=== PATIENT | female | born 1980 | race Asian ===

== ENCOUNTER 2019-07-06 06:14 | Outpatient (CLI) | payer OTHER ==
[2019-07-06 11:02] LABS: BHCG - Serum Negative (NEGATIVE); Pregs Control Background? CLEAR/WHITE (CLR/WHITE); Pregs Control Bar Appear? YES (CONTROL BAR)
[2019-07-06 18:13] LABS: SARS-CoV-2 MS2 Positive; SARS-CoV-2 N Gene Negative; SARS-CoV-2 S Gene Negative; SARS-CoV-2 orf1ab Negative
== END 2019-07-06 06:15 | disposition home or self-care (01) ==
LOC: LABBT 06:14
PROVIDERS: ATTEND Neurological Surgery
DX: Z01.812 Encounter for preprocedural laboratory examination (principal); Z11.59 Encounter for screening for other viral diseases; M51.16 Intervertebral disc disorders with radiculopathy, lumbar region
CPT/HCPCS: 84703; 87635; U0003

== ENCOUNTER 2019-07-08 06:14 | Day surgery (SDC) | payer OTHER ==
[2019-07-06 09:48] VITALS: BMI 22.6
--- NOTE | 2019-07-07 12:43 | HP ---
HISTORY OF PRESENT ILLNESS: Ms. Richards is a very pleasant 38-year-old woman, here today to discuss seven years worth of increasing lower back pain now to include a right lower extremity L5 pattern of pain with difficulty walking even shorter distances. She reports persistent numbness to the heel of the right foot and to the posterolateral right calf. She has similar symptoms on the left, but much less severe. She has treated this with rest and acupuncture, which she feels has helped, but her symptoms persist. Pain worsens when standing or walking, but much better when lying down. MRI on [facility] from [place] reveals a large central disk protrusion at both L3 and at L4 that likely contributing someway to her symptoms. PHYSICAL EXAMINATION: She is alert and oriented x3. Gait is slowed and antalgic. Lower extremity motor exam is normal. She does have a positive right straight leg raise. PAST MEDICAL HISTORY: Significant for no major medical problems. She has no prior surgeries. She takes estradiol daily. ALLERGIES: NO KNOWN DRUG ALLERGIES. ASSESSMENT: Lumbar disk herniation with radiculopathy. PLAN: Dr. Levy met with the patient, reviewed imaging, and advocated for an L3 and L4 diskectomy. He explained to the patient the risks, benefits, and alternatives to the procedure. The patient expressed understanding and elected to move forward with surgery as discussed. I do believe the patient is mentally competent and capable of making medical decisions for herself. We will move forward with surgery as planned. Job ID: [id number]
[2019-07-08] MEDS ORDERED: Fentanyl 100 MCG/2 ML VIAL ONE ×3 (06:34→10:15)
[2019-07-08] MEDS ORDERED: Thrombin 5000 UNITS/5 ML VIAL ONE (06:53)
[2019-07-08] MEDS ORDERED: Bupivacaine PF 0.5% 30 ML VIAL ONE (06:53)
[2019-07-08] MEDS ORDERED: Lidocaine 1% w/Epinephrine 1:100K 20 ML VIAL ONE (06:53)
[2019-07-08] MEDS ORDERED: Midazolam HCl 2 mg/2 ml Vial ONE (07:27)
[2019-07-08] MEDS ORDERED: Sodium Chloride 0.9% 30 ML ONE (09:14)
--- NOTE | 2019-07-08 09:20 | OP ---
DATE OF PROCEDURE: 07/08/2019 RAW MATERIAL PLANNER: Narayan Baez PA-C INDICATION: Pain. DIAGNOSIS: Lumbar radiculopathy and herniated disk at L3 and L4. PROCEDURE PERFORMED: L3-L4 decompression with diskectomy. ANESTHESIA: General. DESCRIPTION OF PROCEDURE: The patient was brought into the operating room and placed under general anesthesia. She was flipped from the supine to prone position on the operating room table. A linear incision was planned at the L4 region. After prepping and draping and after an operative pause, the incision was created. The soft tissues were swept away from midline. Self-retaining retractors were placed into the wound for optimal exposure. After confirming the appropriate level with C-arm fluoroscopy, the entire lamina of L4 was removed as well as a small inferior aspect of L3 and superior aspect of L5. After performing the laminectomy and decompressing the lateral recesses, we looked in the lateral recess at the L4-L5 segment on the left, where a right angled nerve root retractor mobilized the thecal sac to the contralateral side and an annulotomy was performed on the disk at the L4 segment. Firm disk material was removed. The descending L5 nerve roots were decompressed bilaterally. We then redirected our attention at the L3-L4 segment, where a large varicosity was identified in the epidural space. That was removed with bipolar cautery. The lateral recesses were further decompressed such that the descending L4 nerve roots were decompressed. The L3-L4 disk was inspected and found not to be a significant contributing factor to compression and therefore a diskectomy at that segment was not removed, just a decompression alone. After completing the decompressions, the wound was irrigated. Hemostasis was maintained throughout. The wound was then closed in anatomic layers and a pressure dressing was applied. There were no known procedural complications. Job ID: [id number]
[2019-07-08] MEDS ORDERED: Meperidine HCl/PF 25 MG/ML VIAL ONE (09:30)
[2019-07-08] MEDS ORDERED: Ondansetron PF 4 MG/2 ML Vial ONE (11:42)
[2019-07-08] MEDS ORDERED: Lidocaine 1% PF 5 ML VIAL ONE (11:42)
[2019-07-08] MEDS ORDERED: PROPOFOL 200 MG/20 ML VIAL ONE (11:42)
[2019-07-08] MEDS ORDERED: Rocuronium Bromide 10 MG/ML (10ML VIAL) ONE (11:42)
[2019-07-08] MEDS ORDERED: Glycopyrrolate 0.2 MG/ML 5 ML SYRINGE ONE (11:42)
[2019-07-08] MEDS ORDERED: Ketorolac Tromethamine 30 MG/ML VIAL ONE (11:42)
[2019-07-08] MEDS ORDERED: Dexamethasone 20 MG/5 ML VIAL ONE (11:42)
[2019-07-08] MEDS ORDERED: CEFAZOLIN 1 GM VIAL ONE (12:26)
== END 2019-07-08 13:20 | disposition home or self-care (01) ==
LOC: SDC 06:14
PROVIDERS: ATTEND Neurological Surgery
PROC: 0ST20ZZ Resection of Lumbar Vertebral Disc, Open Approach (ICD-10-PCS; principal; 2019-07-08)
DX: M51.16 Intervertebral disc disorders with radiculopathy, lumbar region (principal)
CPT/HCPCS: 76000; J0690; J1100; J1885; J2001; J2175; J2250; J2405; J2704; J3010; S0020